=== PATIENT | male | born 1955 | race Caucasian/White ===

== ENCOUNTER 2018-06-01 07:03 | Day surgery (SDC) ==
[2018-06-01] MEDS: TETRACAINE 0.5% UNIT-DOSE OP PRN ×2 (07:50→08:40)
[2018-06-01] MEDS: BETADINE OPTH PREP OP PRN ×2 (07:50→08:40)
[2018-06-01] MEDS: CYCLOGYL 2% OPTH OP PRN ×3 (07:51→08:01)
[2018-06-01] MEDS ORDERED: ZOFRAN 4 MG/2 ML IVP ONE (07:58)
[2018-06-01] MEDS ORDERED: LIDOCAINE 1% 20 ML MDV ID STA (07:58)
[2018-06-01] MEDS ORDERED: DEX-MOXI-KETOR OPTH INJ 1/0.5/0.4 MG/ML IO ONE (07:58)
[2018-06-01] MEDS ORDERED: LIDOCAINE 1%/PHENYLEPHRINE 1.5% BSS (SURGERY) INTRAOCULA ONE (07:58)
[2018-06-01] MEDS ORDERED: BSS WITH EPINEPHRINE OP ONE (07:58)
[2018-06-01] MEDS ORDERED: BRIMONIDINE TARTRATE 0.2% OPTH SOL OP PRN (07:58)
[2018-06-01] MEDS ORDERED: ZOFRAN 4 MG/2 ML ONE (08:50)
[2018-06-01] MEDS ORDERED: VERSED ONE (08:50)
[2018-06-01] MEDS ORDERED: SUBLIMAZE ONE (08:50)
[2018-06-02 14:45] VITALS: BP 121/67; TEMP 98.6
== END 2018-06-01 10:00 | disposition home or self-care (01) ==
LOC: SURG 07:03
PROVIDERS: ATTEND Ophthalmology
DX: H25.811 Combined forms of age-related cataract, right eye (principal)

== ENCOUNTER 2018-06-22 08:13 | Day surgery (SDC) ==
[2018-06-22] MEDS: BETADINE OPTH PREP OP PRN ×2 (09:10→10:00)
[2018-06-22] MEDS: TETRACAINE 0.5% UNIT-DOSE OP PRN ×2 (09:10→10:00)
[2018-06-22] MEDS: CYCLOGYL 2% OPTH OP PRN ×3 (09:11→09:21)
[2018-06-22] MEDS ORDERED: LIDOCAINE 1%/PHENYLEPHRINE 1.5% BSS (SURGERY) INTRAOCULA ONE (09:19)
[2018-06-22] MEDS ORDERED: DEX-MOXI-KETOR OPTH INJ 1/0.5/0.4 MG/ML IO ONE (09:19)
[2018-06-22] MEDS ORDERED: ZOFRAN 4 MG/2 ML IVP ONE (09:19)
[2018-06-22] MEDS ORDERED: BSS WITH EPINEPHRINE OP ONE (09:19)
[2018-06-22] MEDS ORDERED: LIDOCAINE 1% 20 ML MDV ID STA (09:19)
[2018-06-22] MEDS ORDERED: BRIMONIDINE TARTRATE 0.2% OPTH SOL OP PRN (09:19)
[2018-06-22] MEDS ORDERED: ZOFRAN 4 MG/2 ML ONE (10:05)
[2018-06-22] MEDS ORDERED: SUBLIMAZE ONE (10:05)
[2018-06-22] MEDS ORDERED: VERSED ONE (10:05)
[2018-06-22 13:58] VITALS: TEMP 97.3
[2018-06-24 08:47] VITALS: BP 132/56
== END 2018-06-22 11:00 | disposition home or self-care (01) ==
LOC: SURG 08:13
PROVIDERS: ATTEND Ophthalmology
DX: H25.812 Combined forms of age-related cataract, left eye (principal)